=== PATIENT | female | born 1970 | race African-American/Black ===

== ENCOUNTER 2020-12-29 08:12 | Outpatient (CLI) | payer BC, SELFPAY ==
--- NOTE | ~2020-12-29 | MM_ITS ---
EXAMINATION: MM screening [facility] BI w robbie HISTORY: Screening TECHNIQUE: Craniocaudal and mediolateral oblique 3-D tomosynthesis images were obtained and synthetic 2-D images were generated. CAD analysis was submitted and interpreted. COMPARISON: Comparison to multiple prior studies sequentially, with oldest reviewed study dated 01/30. BREAST PARENCHYMAL COMPOSITION: The breasts are heterogeneously dense, which may obscure small masses . FINDINGS: There is no evidence of suspicious mass, calcification, or architectural distortion to sugg est malignancy in either breast. There has been no suspicious interval change. IMPRESSION: 1. No mammographic evidence of malignancy. 2. Recommend routine screening mammography in one year. BI-RADS Category 1: Negative Reviewed, dictated and finalized at location A.
== END 2020-12-29 08:13 | disposition home or self-care (01) ==
LOC: ANHIMG 08:14
PROVIDERS: Visit Provider Obstetrics & Gynecology
DX: Z12.31 Encounter for screening mammogram for malignant neoplasm of breast (principal)
CPT/HCPCS: 77063; 77067

== ENCOUNTER 2021-01-26 15:07 | Outpatient (CLI) | payer BC, SELFPAY ==
--- NOTE | ~2021-01-26 | US_ITS ---
EXAMINATION: US pelvic complete w TV DATE: 01/26/2021 15:49 INDICATION: Leiomyoma Comparison:12/25/2018 TECHNIQUE: Multiple transabdominal and endovaginal sonographic images of the pelvis performed. FINDINGS: The uterus measures 11.5 x 8.4 x 8.8 cm. There are multiple uterine fibroids, largest measu ring 6.7 cm greatest dimension. The endometrial complex measures 5 mm. The ovaries are not visualized. There is no free fluid in the pelvis. There are no abnormal masses seen on either side. IMPRESSION: 1. Enlarged fibroid uterus. Largest discrete fibroid measures 6.7 x 6.2 x 6.1 cm. Reviewed, dictated and finalized at location A. IMPRESSION: 1. Enlarged fibroid uterus. Largest discrete fibroid measures 6.7 x 6.2 x 6.1 c m.
== END 2021-01-26 15:08 | disposition home or self-care (01) ==
PROVIDERS: Visit Provider Obstetrics & Gynecology
DX: D25.9 Leiomyoma of uterus, unspecified (principal)
CPT/HCPCS: 76830; 76856

== ENCOUNTER 2021-09-07 01:17 | Day surgery (SDC) | payer BC, SELFPAY ==
[2021-08-30 13:46] VITALS: BMI 36.3
[2021-09-07 06:28] VITALS: BP 164/90; PULSE 80; RESP 16; TEMP 37.1; O2SAT 100
[2021-09-07] MEDS: LACTATED RINGERS 1,000 ML 150 ML IV CONT (06:30)
--- NOTE | 2021-09-07 07:16 | PM.HPGS ---
History of Present Illness History of Present Illness Consent: Risks, benefits, and alternatives have been discussed and questions answered. Patient agrees to proceed with procedure. Chief complaint: neoplasm screening Narrative: Kim Beauchamp is a 50 year old female here for first screening colonoscopy Review of Systems Constitutional: Constitutional: Denies headache(s) and Denies weakness Eyes: Eyes: Denies blurry vision ENT: Reports Normal hearing present, Denies headache(s) and Denies neck pain Cardiovascular: Cardiovascular: Denies chest pain and Denies dyspnea Respiratory: Respiratory: Denies dyspnea Gastrointestinal: Gastrointestinal: Reports no additional gastrointestinal complaints Genitourinary: Genitourinary: Denies dysuria Musculoskeletal: Musculoskeletal: Denies neck pain Integumentary/Breasts: Skin/Breast: Denies dry skin Neurologic: Reports Normal hearing present, Denies headache(s) and Denies weakness Psychiatric: Psychiatric: Denies anxiety Endocrine: Endocrine: Denies change in body appearance Hematologic/Lymphatic: Hematologic/Lymphatic: Denies easy bleeding Allergic/Immunologic: Allergic/Immunologic: Denies urticaria PMFSH Past Medical History Medical History (Updated 06/21/21 @ 09:24 by Tom Candelaria MD) Anemia Family History Family History Sibling Diabetes mellitus Family history of malignant neoplasm of cervix Other Family history of malignant neoplasm of breast Social History Social History (Updated 06/21/21 @ 08:33 by Joanna Prado CNA) Smoking status: Never smoker Second hand tobacco smoke exposure: No Alcohol intake: current Alcohol use details: drink maybe once a month Substance use: never Substance use type: does not use Gender identity (if verbalized by the patient): Female Meds Home Medications and Allergies Home Medications Medication Instructions Recorded Confirmed Type No Home Medications 12/24/19 09/07/21 History Allergies Allergy/AdvReac Type Severity Reaction Status Date / Time lisinopril Allergy Severe angioedema Verified 09/07/21 06:27 ragweed pollen Allergy Intermediate Unknown Verified 09/07/21 06:27 SELWYN Inhibitors Allergy Other Verified 09/07/21 06:27 Vital Signs Vital Signs - 24 hr 09/07/21 06:28 Temperature 98.8 F Pulse Rate 80 Respiratory Rate 16 Blood Pressure 164/90 H Pulse Oximetry 100 Exam Const: General: comfortable and no acute distress HENMT: General nose exam: Normal nares present Eyes: General: appearance normal, both eyes and all related structures Neck: Neck: no JVD Resp: Auscultation: clear to auscultation bilaterally Cardio: Rate: regular rate Rhythm: regular rhythm GI: Inspection: non-distended GI Palp: Yes Soft to palpation Skin: General skin exam: normal color Neuro: General: gait normal Speech: normal speech Extrem: General: normal to inspection Psych: Mental Status: mental status grossly normal Assessment and Plan Assessment and plan (1) Encounter for screening colonoscopy: Code(s): Z12.11 - Encounter for screening for malignant neoplasm of colon Status: Acute Assessment and Plan: colonoscopy
--- NOTE | 2021-09-07 07:19 | P.PNAN_ITS ---
Anes - Initial Pre Proc Eval Procedure: Operation Date: 09/07/21 07:30 Proposed Procedures p Screening Colonoscopy - Hamilton Leach MD Date/Time: 09/07/21 07:19 Surgeon: Hamilton Leach MD Pre Op Diagnosis: neoplasm screening Patient Data Age: 50 Gender: F Height: 1.57 m Weight: 91.6 kg Last Vital Signs Temp 98.8 F 09/07/21 06:28 Pulse 80 09/07/21 06:28 Resp 16 09/07/21 06:28 BP 164/90 H 09/07/21 06:28 Pulse Ox 100 09/07/21 06:28 Allergies Allergy/AdvReac Type Severity Reaction Status Date / Time lisinopril Allergy Severe angioedema Verified 09/07/21 06:27 ragweed pollen Allergy Intermediate Unknown Verified 09/07/21 06:27 SELWYN Inhibitors Allergy Other Verified 09/07/21 06:27 Home Medications Medication Instructions Recorded Confirmed Type No Home Medications 12/24/19 09/07/21 History Patient hx anesthesia problems: none Family hx anesthesia problems: none Results Review: All pre-operative results and documents have been reviewed as part of the pre-operative evaluation. [facility] Past Medical History Medical History (Updated 06/21/21 @ 09:24 by Tom Candelaria MD) Anemia Family History Family History Sibling Diabetes mellitus Family history of malignant neoplasm of cervix Other Family history of malignant neoplasm of breast Social History Social History (Updated 06/21/21 @ 08:33 by Joanna Prado CNA) Smoking status: Never smoker Second hand tobacco smoke exposure: No Alcohol intake: current Alcohol use details: drink maybe once a month Substance use: never Substance use type: does not use Gender identity (if verbalized by the patient): Female Anes - Eval Final PreProcedure Day of Procedure 09/07/21 07:19 Patient weight: obese Heart: regular rate and rhythm Lungs: clear to auscultation Airway: Mallampati scale class II Neurological: alert and oriented Last oral intake: >/= 8 hours ASA classification: II Emergent: no Anesthetic plan: proceed Anesthesia type and monitoring: general GIVS and standard monitoring Results Review: All pre-operative results and documents have been reviewed as part of the pre-operative evaluation. Informed Consent: The patient's anesthetic plan and its attendant risks and benefits were discussed with the patient/family/POA. Questions were solicited and answers provided to the satisfaction of the patient/family/POA.
[2021-09-07 07:40] VITALS: BP 122/85; PULSE 82; RESP 23; O2SAT 99
[2021-09-07 07:50] VITALS: BP 122/82; PULSE 85; RESP 22; O2SAT 100
[2021-09-07 08:00] VITALS: BP 136/96; PULSE 69; RESP 19; O2SAT 100
== END 2021-09-07 08:13 | disposition home or self-care (01) ==
PROVIDERS: PCP Internal Medicine; Visit Provider Internal Medicine Gastroenterology
PROC: 0DJD8ZZ Inspection of Lower Intestinal Tract, Via Natural or Artificial Opening Endoscopic (ICD-10-PCS; CPT 45378; principal; 2021-09-07 07:30)
DX: Z12.11 Encounter for screening for malignant neoplasm of colon (principal); K63.5 Polyp of colon; K64.8 Other hemorrhoids; E66.9 Obesity, unspecified; Z68.36 Body mass index [BMI] 36.0-36.9, adult
CPT/HCPCS: 45385; 88305; J2704; J7120

== ENCOUNTER 2022-01-06 08:28 | Outpatient (CLI) | payer BC, SELFPAY ==
--- NOTE | ~2022-01-06 | MM_ITS ---
EXAMINATION: MM screening thomas BI w robbie HISTORY: Screening TECHNIQUE: Craniocaudal and mediolateral oblique 3-D tomosynthesis images were obtained and synthetic 2-D images were generated. CAD analysis was submitted and interpreted. COMPARISON: Comparison to multiple prior studies sequentially, with oldest reviewed study dated 02/2016. BREAST PARENCHYMAL COMPOSITION: The breasts are heterogeneously dense, which may obscure small masses . FINDINGS: There is no evidence of suspicious mass, calcification, or architectural distortion to sugg est malignancy in either breast. There has been no suspicious interval change. IMPRESSION: 1. No mammographic evidence of malignancy. 2. Recommend routine screening mammography in one year. BI-RADS Category 1: Negative Reviewed, dictated and finalized at location A.
== END 2022-01-06 08:29 | disposition home or self-care (01) ==
PROVIDERS: PCP Internal Medicine; Visit Provider Obstetrics & Gynecology
DX: Z12.31 Encounter for screening mammogram for malignant neoplasm of breast (principal)
CPT/HCPCS: 77063; 77067

== ENCOUNTER 2023-01-26 15:43 | Outpatient (CLI) | payer BC, SELFPAY ==
--- NOTE | ~2023-01-26 | US_ITS ---
EXAMINATION: US pelvic complete w TV DATE: 01/26/2023 19:30 INDICATION: Uterine hypertrophy Comparison:01/26/2021 TECHNIQUE: Multiple transabdominal and endovaginal sonographic images of the pelvis performed. FINDINGS: The uterus measures 16.7 x 8.7 x 11.2 cm. The endometrial complex is not visualized. There are multiple uterine fibroids, largest on the right superiorly measuring 10.8 cm. The right ovary lacie sures 4.1 x 2.2 x 3.4 cm and the left ovary measures 4.9 x 3.3 x 5.2 cm. There are small follicles i n each ovary. Normal doppler signal in both ovaries. There is no free fluid in the pelvis. There are no abnormal masses seen on either side. IMPRESSION: 1. Enlarged uterus containing multiple fibroids, largest measuring 10.8 cm. Reviewed, dictated and finalized at location A.
== END 2023-01-26 15:44 | disposition home or self-care (01) ==
PROVIDERS: Visit Provider Obstetrics & Gynecology
DX: N85.2 Hypertrophy of uterus (principal); D25.9 Leiomyoma of uterus, unspecified
CPT/HCPCS: 76830; 76856

== ENCOUNTER 2023-04-03 08:52 | Outpatient (CLI) | payer BC, SELFPAY ==
--- NOTE | ~2023-04-03 | MM_ITS ---
EXAMINATION: MM screening [facility] BI w robbie HISTORY: Screening mammogram TECHNIQUE: Craniocaudal and mediolateral oblique 3-D tomosynthesis images were obtained and synthetic 2-D images were generated. CAD analysis was submitted and interpreted. COMPARISON: 01/06/2022, 12/29/2020 BREAST PARENCHYMAL COMPOSITION: There are scattered areas of fibroglandular density. FINDINGS: No suspicious mass, calcification, or architectural distortion are identified in either ebony ast to suggest malignancy. There has been no suspicious interval change. IMPRESSION: 1. No mammographic evidence of malignancy. 2. Recommend routine screening mammography in one year. BI-RADS Category 1: Negative Reviewed, dictated and finalized at location A.
== END 2023-04-03 08:53 | disposition home or self-care (01) ==
LOC: ANHIMG 08:55
PROVIDERS: Visit Provider Obstetrics & Gynecology
DX: Z12.31 Encounter for screening mammogram for malignant neoplasm of breast (principal)
CPT/HCPCS: 77063; 77067

== ENCOUNTER 2024-01-26 10:01 | Outpatient (CLI) | payer BC, SELFPAY ==
--- NOTE | ~2024-01-26 | US_ITS ---
EXAMINATION: US pelvic complete w TV DATE: 01/26/2024 10:37 INDICATION: Follow-up fibroids. TECHNIQUE: Multiple transabdominal and endovaginal sonographic images of the pelvis were obtained. COMPARISON: 01/26/2023. FINDINGS: Uterus: 16.6 x 1.4 x 14.7 cm. Multiple uterine fibroids. The largest measures 12.8 cm. Endometrial co mplex measures approximately 3 mm but is mostly obscured. Right Ovary: Not visualized. Left Ovary: Not visualized. There is no free fluid in the pelvis. IMPRESSION: Multiple uterine fibroids measuring 12.8 cm. Bilateral ovaries not visualized. Reviewed, dictated and finalized at location K.
== END 2024-01-26 10:02 ==
LOC: MICIMG 10:02
PROVIDERS: PCP Family Medicine; Visit Provider Obstetrics & Gynecology
DX: D25.9 Leiomyoma of uterus, unspecified (principal)
CPT/HCPCS: 76830; 76856

== ENCOUNTER 2024-05-23 14:26 | Outpatient (CLI) | payer BC, SELFPAY ==
--- NOTE | ~2024-05-23 | MM_ITS ---
EXAMINATION: MM screening [facility] BI w robbie HISTORY: Screening mammogram TECHNIQUE: Craniocaudal and mediolateral oblique 3-D tomosynthesis images were obtained and synthetic 2-D images were generated. CAD analysis was submitted and interpreted. COMPARISON: 04/03/2023, 01/06/2022, 12/29/2020 BREAST PARENCHYMAL COMPOSITION:Not Dense. There are scattered areas of fibroglandular density. FINDINGS: No suspicious mass, calcification, or architectural distortion are identified in either ebony ast to suggest malignancy. There has been no suspicious interval change. IMPRESSION: No mammographic evidence of malignancy. Recommend routine screening mammography in one year. BI-RADS Category 1: Negative Reviewed, dictated and finalized at location . 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
== END 2024-05-23 14:27 | disposition home or self-care (01) ==
LOC: ANHIMG 14:26
PROVIDERS: PCP Family Medicine; Visit Provider Obstetrics & Gynecology
DX: Z12.31 Encounter for screening mammogram for malignant neoplasm of breast (principal)
CPT/HCPCS: 77063; 77067

== ENCOUNTER 2024-06-13 10:54 | Outpatient (RCR) | payer BC, SELFPAY ==
[2024-06-13 10:57] VITALS: BMI 38.2
[2024-06-13 12:29] VITALS: BMI 38.2
== END 2024-09-02 09:26 | disposition home or self-care (01) ==
LOC: ANHDMC 10:54
PROVIDERS: PCP Family Medicine; Visit Provider Family Medicine
DX: E66.9 Obesity, unspecified (principal); Z71.3 Dietary counseling and surveillance
CPT/HCPCS: 97802

== ENCOUNTER 2025-06-11 14:48 | Outpatient (CLI) | payer BC, SELFPAY ==
--- NOTE | ~2025-06-11 | MM_ITS ---
EXAMINATION: MM screening thomas BI w robbie HISTORY: Screening TECHNIQUE: Craniocaudal and mediolateral oblique 3-D tomosynthesis images were obtained and synthetic 2-D images were generated. CAD analysis was submitted and interpreted. COMPARISON: Comparison to multiple prior studies sequentially, with oldest reviewed study dated , 02/09/2019 BREAST PARENCHYMAL COMPOSITION: Not Dense: There are scattered areas of fibroglandular density. FINDINGS: There is no evidence of suspicious mass, calcification, or architectural distortion to suggest malignancy in either breast. IMPRESSION: 1. No mammographic evidence of malignancy. 2. Recommend routine screening mammography in one year. BI-RADS Category 1: Negative Reviewed, dictated and finalized at location A. RETE PUDDLER
--- OUTSIDE RECORDS SUMMARY | 2025-06-11 19:45 | XMS_ITS | Clinical Summary ---
Author Organization [facility] Address [address] [place] [address] Care Team Providers Care Marketing Business Analyst Name Role Phone Noam Vivas MD Primary Care Provider [phone] Source Comments [facility],non-owned Affiliates and Associated Physician Practices is amultiple site organization consisting of ambulatory clinics and hospital sitesin [place], [place], [place] and [place]. This disclosure is being madepursuant to the Care Everywhere program and may not contain all information available regarding this patient. Last updated 18.[facility] [employer] Allergies Active Allergy Reactions Criticality Noted Date Comments John Inhibitors Swelling 06/30/2023 Lip swelling Lisinopril Swelling 06/30/2023 Medications * Be aware that medications may not be up to date on this document. Alwaysverify current medications with the patient. FeroSul 325 (65 Fe) MG tablet Take 1 (one) tablet by mouth 2 times daily 05/14/2023 Active vitamin D, ergocalciferol, (Drisdol) 1.25 MG (14971 UT) capsule Take 1 (one) capsule by mouth 05/14/2023 Active Family History Medical History Relation Name Comments Cancer - Lung Father Heart Failure Mother Cancer - Breast Other pat aunt Relation Name Status Comments Father Alive Mother Alive Other pat aunt Social History Tobacco Use Types Packs/Day Years Used Date Smoking Tobacco: Never Smokeless Tobacco: Never Tobacco Cessation:Counseling Given: Not Answered Alcohol Use Standard Drinks/Week Comments Not Currently 0 (1 standard drink = 0.6 oz pur e alcohol) special ocassion Comments Unknown Sex and Gender Information Value Date Recorded Sex Assigned at Not on file Legal Sex Female 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 Gender Identity Not on file Sexual Orientation Not on file Last Filed Vital Signs Vital Sign Reading Time Taken Comments Blood Pressure 146/85 06/30/2023 10:19 AM EQUIPMENT INSTALLER Pulse 79 06/30/2023 10:19 AM EQUIPMENT INSTALLER Temperature 36.7 C (98 F) 06/30/2023 10:19 AM EQUIPMENT INSTALLER Respiratory Rate 18 06/30/2023 10:19 AM EQUIPMENT INSTALLER Oxygen Saturation 99% 06/30/2023 10:19 AM EQUIPMENT INSTALLER Inhaled Oxygen Concentration - - Weight 95.7 kg (211 lb) 06/30/2023 10:19 AM EQUIPMENT INSTALLER Height 157.5 cm (5' 2) 06/01/2023 2:10 PM EQUIPMENT INSTALLER Body Mass Index 38.59 06/01/2023 2:10 PM EQUIPMENT INSTALLER Plan of Treatment Health Maintenance Due Date Last Done Comments COLOGUARD (AGES 45-75) - COL ON CA SCREENING 1970 COLON MONITORING 1970 COLONOSCOPY - COLON CA SCREENING 1970 CT COLONOGRAPHY - COLON CA SCREENING 1970 Colorectal Cancer Screening 1970 FIT - COLON CA SCREENING 1970 FLEX SIG - COLON CA SCREENING 1970 LIPID TESTING 1970 MAMMOGRAM 1970 HIV SCREENING 1985 HEPATITIS C SCREENING 09/04/1988 DTAP/TDAP/TD VACCINES (1 - Tdap) 1989 HEPATITIS B VACCINE (1 of 3 - 19+ 3-dose series) 1989 PAP SMEAR 09/10/1991 PNEUMOCOCCAL VACCINE 50+ (1 of 1 - PCV) 2020 ZOSTER VACCINE (1 of 2) 2020 SCREENING FOR DIABETES 06/01/2023 DEPRESSION SCREENING 07/03/2024 COVID-19 VACCINE (3 - 2024-2 6 season) 2025 09/03/2020, 08/13/2020 INFLUENZA VACCINE (#1) 2025 HIB VACCINE Aged Out No longer eligi ble based on patient's age to complete this topic HPV VACCINE Aged Out No longer eligi ble based on patient's age to complete this topic MENINGOCOCCAL (Group B) VACCINE SHARED DECISION-MAKING Aged Out No longer eligible based on patient's age to complete this topic MENINGOCOCCAL GROUPS A/C/Y/W VACCINE Aged Out No longer eligible b ased on patient's age to complete this topic Insurance ANTHEM Care Teams Marketing Business Analyst Relationship Specialty Start Date End Date Noam Vivas MD [address] [place] [id number] PCP - General Internal Medicine 06/30/23
== END 2025-06-11 14:49 | disposition home or self-care (01) ==
LOC: ANHFOHIMG 14:49
PROVIDERS: PCP Family Medicine; Visit Provider Obstetrics & Gynecology
DX: Z12.31 Encounter for screening mammogram for malignant neoplasm of breast (principal)
CPT/HCPCS: 77063; 77067